=== PATIENT | male | born 1995 | race African-American/Black ===

== ENCOUNTER 2018-06-12 14:46 | Emergency (ER) | payer OTHER ==
[~2018-06-12] VITALS: Ht 180.3 cm; Wt 69.9 kg
[2018-06-12 15:05] VITALS: BP 116/64
[2018-06-12] MEDS ORDERED: HYDROcodone/APAP 5/325MG 1 TAB TABLET PO ONE (16:00)
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
[2018-06-12] MEDS ORDERED: AMOX875T PO (16:58)
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
== END 2018-06-12 17:07 | disposition short-term general hospital (02) ==
LOC: EEVIPCON 14:46 → ER 14:46
DX: S00.83XA Contusion of other part of head, initial encounter (principal); H66.91 Otitis media, unspecified, right ear; F20.9 Schizophrenia, unspecified; Y08.89XA Assault by other specified means, initial encounter; Y93.89 Activity, other specified; Y92.89 Other specified places as the place of occurrence of the external cause; Y99.8 Other external cause status
CPT/HCPCS: 70450; 70486; 72125; 99285-25